=== PATIENT | male | born 1965 | race Caucasian/White ===

== ENCOUNTER → 2021-02-10 | Outpatient (CLI) | payer OTHER | LOC: SJCVCIMAG 08:45 | PROVIDERS: ATTEND Internal Medicine | DX: R07.9 Chest pain, unspecified (principal); R06.00 Dyspnea, unspecified; R07.2 Precordial pain; E78.00 Pure hypercholesterolemia, unspecified; R93.1 Abnormal findings on diagnostic imaging of heart and coronary circulation; Z72.0 Tobacco use; Z72.89 Other problems related to lifestyle; Z88.0 Allergy status to penicillin; Z88.5 Allergy status to narcotic agent; Z79.82 Long term (current) use of aspirin; Z79.899 Other long term (current) drug therapy ==

== ENCOUNTER 2021-02-15 06:19 | Observation (INO) | payer OTHER ==
[~2021-02-15] VITALS: Ht 177.8 cm; Wt 86.2 kg
[2021-02-15 07:20] VITALS: BP 116/74
[2021-02-15] MEDS ORDERED: BREO ELLIPTA 11 EACH INH (07:28)
[2021-02-15] MEDS ORDERED: PROAIR HFA8.5 GM INH (07:28)
[2021-02-15] MEDS ORDERED: LIPITOR40 MG PO (07:29)
[2021-02-15] MEDS ORDERED: ASA81BEC PO (07:29)
[2021-02-15] MEDS ORDERED: VITAMIN D325 MC5 PO (07:30)
[2021-02-15] MEDS ORDERED: COENZYME Q10100 MG PO (07:30)
[2021-02-15] MEDS ORDERED: FISH OIL 1,0001 EAC9 PO (07:31)
[2021-02-15] MEDS ORDERED: SINGULAIR 10 MG10 M1 PO (07:31)
[2021-02-15] MEDS ORDERED: SUPER THERAVIT1 EACH PO (07:32)
[2021-02-15] MEDS ORDERED: METOPROLOL SUCC25 M1 PO (07:32)
[2021-02-15 11:46] VITALS: BP 115/67
--- NOTE | 2021-02-15 12:56 | CATHLAB ---
[facility] [place] [address] INVASIVE PROCEDURE REPORT Name: CLARE ZAMORA Room #: 206-P ADM IN M.R.#: [id number] Admission: 02/15/21 Attend Phys: Angel Carrillo MD, Discharge: Date of : 65 Report #: [id number] THIS REPORT FOR: cc: Diony Castillo Damon DO Lundgren, Craig H. MD [facility] ~ APPROVED REPORT Study performed: 02/15/2021 07:40:46 Patient Details Patient Status: Out-Patient Room #: The patient is a 55 year-old male Event Personnel Angel Carrillo Motion Picture Cameraman, Rolan Henriquez RN RN, Nata De Anda RTR, Sonali Wharton Ja'net RTR Monitor Procedures Performed Left Heart Cath w/or w/o Coronaries [id number] [facility] Art Access - R femoral artery* MIRIAN Place w/wo Plasty Single LAD 371020 27738 Initial Mod Sed Same Phys/QHP Gr5y 248558 44202 Mod Sed Same Phys/QHP Ea 490289 Hemostasis w/ Mynx Indication Positive stress test Procedure Narrative The patient was brought electively to the Cardiac Catheterization Laboratory and was prepped and draped in a sterile manner. The Right Groin^ was infiltrated with 1% Lidocaine subcutaneous anesthesia. A PINNACLE 6FR Sheath #[id number] sheath was inserted into the RFA^. Coronary angiography was performed using coronary diagnostic catheters. The right coronary system was accessed and visualized with a JR4 catheter. The left coronary system was accessed and visualized with a JL4 catheter. The left ventricle was accessed and visualized with a PIGTAIL catheter. Left ventricular/Aortic Valve gradient assessed via catheter pullback. Left ventriculogram was performed in 30 degree projection. Closure device was deployed with a 6 Fr MYNXGRIP. The patient tolerated the procedure well and there were no complications associated with the procedure. There was no hematoma. [facility] [address] [place] [address] INVASIVE PROCEDURE REPORT Name: CLARE ZAMORA Room #: 206-P [facility] [place] ..#: [id number] Admission: 02/15/21 Attend Phys: Angel Carrillo, Discharge: Date of : 65 Report #: [id number] Intraoperative Conscious Sedation Sedation start time: 8:13 Case end Time: 9:54 Fentanyl 100 mcg Versed 1 mg Fluoro Time: 14.41 minutes Dose: DAP 68326.80 cGycm2 2038 mGy Contrast Type and Amount: Omnipaque 260 ml Diagnostic Cath Left Main Normal left main LAD 95% proximal LAD stenosis just after the origin of a large diagonal branch Diagonal 1 70% proximal diagonal branch stenosis Circumflex Large but nondominant circumflex comprised of 3 marginal branches. Mild ostial circumflex plaquing OM1 Large OM1, angiographically normal OM2 Small second marginal branch, normal OM3 Small third marginal branch, angiographically normal Right Coronary Dominant right coronary with 50-60% mid right coronary stenosis R PDA Normal posterior descending branch RPLV Normal posterior lateral branch Left Ventriculography The left ventricle is normal in size with normal contractility. The left ventricular ejection fraction is estimated to be 60-65%. Left ventricular wall motion abnormalities are not present. There is no mitral insufficiency. Hemodynamics The aortic pressure is 117/62 mmHg with a mean of 96 mmHg. The left ventricular pressure is 128/9 mmHg with a mean of mmHg. The left ventricular end diastolic pressure is 19 mmHg. Pullback from the left ventricle to the aorta revealed no gradient across the aortic valve. PCI Technique Lesion Anticoagulation was achieved with Heparin, Integrilin. Patient was preloaded with Effient. Percutaneous coronary intervention was performed on the proximal left anterior descending artery segment. The lesion stenosis prior to intervention was 95% with OZZY 3 flow. A LAUNCHER 6FR EBU 3.5 #[id number] Guide Catheter was used to engage the LAD ostium. A Luge Wire .014 x 182CM #[id number] Interventional Guidewire was used to cross the lesion. [facility] [address] [place] [address] INVASIVE PROCEDURE REPORT Name: CLARE ZAMORA Room #: 206-P [facility] [place] IN M.R.#: [id number] Admission: 02/15/21 Attend Phys: Angel Carrillo, Discharge: Date of : 65 Report #: [id number] BALLOON DILATION A Balloon catheter Euphora RX 2.5 x 12 #[id number] was inserted and inflated up to 6.00atm for 19seconds. Additional Inflation: 12.00atm for 31seconds. STENT DEPLOYMENT A stent RESOLUTE WILMER RX 3.0 X 15 #[id number] was inserted and inflated up to 12.00atm for 32seconds. POST STENT DEPLOYMENT BALLOON DILATION A Balloon catheter TREK NC RX 3.0 X 12 #[id number] was inserted and inflated up to 16.00atm for 24seconds. Additional Inflation: 18.00atm for 31seconds. Additional Inflation: 18.00atm for 28seconds. There was plaque shifting into the origin of the first diagonal branch necessitating angioplasty and stenting of this vessel. Final angiography reveals 0 % stenosis with OZZY 3 flow. PCI Technique Lesion 2 Percutaneous Coronary Intervention was performed on the first diagnonal branch segment. The lesion stenosis prior to intervention was 85% with OZZY 3 flow. A LAUNCHER 6FR EBU 3.5 #[id number] Guide Catheter was used to engage the ostium. A Luge Wire .014 x 182CM #[id number] Interventional Guidewire was used to cross the lesion. Balloon Dilation A Balloon catheter Euphora RX 2.5 x 12 #[id number] was inserted and inflated up to 15.00atm for 62seconds. Additional Inflation: 18.00atm for 29seconds. Following LAD stenting there was a moderate amount of plaque shifting into the origin of this diagonal branch. Persistent residual stenosis despite several long balloon inflations. Stent Deployment A drug-eluting stent RESOLUTE WILMER RX 2.75 X15 was inserted and inflated up to 12.00atm for 27seconds. Additional Inflation: 20.00atm for 5seconds. Post Stent Deployment Balloon Dilation A Balloon catheter TREK NC RX 3.0 X 12 #[id number] was inserted and inflated up to 12.00atm for 24seconds. Additional Inflation: 13.00atm for 22seconds. Following stenting of the diagonal branch, the LAD was rewired and postdilated with a noncompliant balloon Final angiography reveals 0 % stenosis with OZZY [address] [address] INVASIVE PROCEDURE REPORT Name: CLARE ZAMORA Room #: 206-P ADM IN M.R.#: [id number] Admission: 02/15/21 Attend Phys: Angel Carrillo, Discharge: Date of : 65 Report #: [id number] flow. Conclusion 1. Normal global and regional left ventricular systolic function. EF 65% 2. Severe proximal LAD stenosis treated with a 3.0 x 15 mm Resolute stent 3. Severe first diagonal branch stenosis, stented with a 2.75 x 15 mm Resolute stent extending from the proximal LAD into the diagonal branch. Postdilated to 3.0 mm 4. Mild plaquing in a large, nondominant circumflex 5. Dominant right coronary with 50-60% mid vessel stenosis Recommendations Cardiac Rehabilitation Referral [facility] <ELECTRONICALLY SIGNED> By: Angel Carrillo MD, FACC 02/15/21 1255 1255 54 Angel Carrillo MD, FACC /INF
[2021-02-15 15:30] VITALS: BP 126/79
[2021-02-15] MEDS ORDERED: EFFIENT10 MG PO (16:32)
--- NOTE | 2021-02-15 16:52 | NUR ---
PT TO THE UNIT POST CATH - ORIENTED TO ROOM AND BEDSPACE- ASSESSMENT CHARTED - MEDS PER MAR - NO CO'S OF PAIN OR NAUSEA - MICHAEL DIET AND FLUIDS. GROIN SITE STABLE WITH PT OUT OF BED. VSS POST PROCEDURE. AMBUALATING IN THE HALLWAY. AT THE BEDSIDE. NO CO'S AT THE PRESENT TIME.
[2021-02-15 19:55] VITALS: BP 121/69
[2021-02-15 20:00] VITALS: BP 121/69
[2021-02-16 04:45] VITALS: BP 123/81
[2021-02-16 05:57] LABS: HEMATOCRIT 44.3 % (42.0-52.0); HEMOGLOBIN 14.9 gm/dL (14.0-18.0); MCH 31.5 pg (26.0-34.0); MCHC 33.7 g/dL (28.0-37.0); MCV 93.3 fL (80.0-100.0); RBC 4.74 mil/uL (4.50-6.00); RDW 13.4 % (10.5-14.5); WBC 8.5 thou/uL (4.0-11.0)
[2021-02-16 06:30] LABS: ALBUMIN 3.8 g/dL (3.4-5.0); ANION GAP 9 mmol/L (7-16); BUN 16 mg/dL (7-18); CHLORIDE 106 mmol/L (98-107); CO2 27 mmol/L (21-32); CREATININE 1.1 mg/dL (0.7-1.3); GLUCOSE 94 mg/dL (74-106); POTASSIUM 3.9 mmol/L (3.5-5.1); SGOT 23 U/L (15-37); SGPT 35 U/L (16-63); SODIUM 142 mmol/L (136-145); TOTAL BILIRUBIN 0.9 mg/dL (0.2-1.0)
[2021-02-16 06:31] LABS: SERUM ASSESSMENT Clear
[2021-02-16 06:48] LABS: CHOLESTEROL 122 mg/dL (<200); HDL CHOLESTEROL 60 mg/dL (>40); LDL CHOLESTEROL 42 mg/dL (<100); TRIGLYCERIDE 103 mg/dL (<150); VLDL 21 mg/dL (<40)
--- NOTE | 2021-02-16 07:36 | NUR ---
ASSESSMENT CHARTED. SLEPT WELL. INDEPENDENT TO TOILET AND AMBULATING IN [place]. PLANS TO GO HOME TODAY. CONTINUE POC.
[2021-02-16 07:39] VITALS: BP 124/84
--- NOTE | 2021-02-16 08:17 | EKG ---
[address] [address] ELECTROCARDIOGRAM REPORT Name: CLARE ZAMORA Room #: 206-[facility]..#: [id number] Admission: 02/15/21 Attend Phys: Angel Carrillo MD, Discharge: Date of : 65 Report #: [id number] [facility] Test Date: 2021-02-15 Test Time: 12:35:30 Pat Name: CLARE ZAMORA Department: Room: 206 P Gender: M Generation Engineering Technologist: DIETER : 1965 Requested By: Angel Carrillo Order Number: [id number] MD: Angel Carrillo Measurements Intervals [place] Rate: 61 P: 6 MO: 191 QRS: 26 QRSD: 91 T: -18 QT: 402 QTc: 405 Interpretive Statements Sinus rhythm Borderline T abnormalities, inferior leads No previous ECG available for comparison Electronically Signed On 02-16-2021 8:17:30 CDT by Angel Carrillo [email or web address] <ELECTRONICALLY SIGNED> By: Angel Carrillo MD, [facility] 02/16/21 0817 1235 1235 Angel Carrillo MD, FACC /EPI
[2021-02-16 10:29] VITALS: BP 124/84
--- NOTE | 2021-02-16 11:55 | NUR ---
ASSESSMENT CHARTED - MEDS PER MAR - NO CO'S OF PAIN OR NAUSEA. MICHAEL DIET AND FLUIDS. GROIN SITE C/D/I. PT UP AD ERIC ON THE UNIT. PT HOME THIS AM - INSTRUCTION RE HOMEMEDS/ CARE AND FOLLOW UP GIVEN TO PATIENT AND - STATED UNDERSTANDING ON INSTUCTION GIVEN. PT LEFT UNIT VIA WHEELCHAIR - HOME VIA PVT VEHICLE ACCOMPNAIED BY - NO CO'S AT TIME OF D/C.
== END 2021-02-16 11:14 | disposition home or self-care (01) ==
LOC: CATH 06:19 → 2N 10:02 → CATH 11:17 → 2N 02-16 11:14
PROVIDERS: ADMIT Internal Medicine; ATTEND Internal Medicine
DX: I25.10 Atherosclerotic heart disease of native coronary artery without angina pectoris (principal); I10 Essential (primary) hypertension; E78.5 Hyperlipidemia, unspecified; F17.200 Nicotine dependence, unspecified, uncomplicated; Z79.82 Long term (current) use of aspirin; Z79.899 Other long term (current) drug therapy
CPT/HCPCS: 10797